=== PATIENT | female | born 1950 ===

== ENCOUNTER 2020-04-03 09:25 | Inpatient (IN) ==
[~2020-04-03 09:25] MED LIST: Buffered Lidocaine 1% SYRIN 1 ml INTRADERM ONE; Ertapenem 1 GM in NS 0.9% 50 ML BAG IVPB SCH; Famotidine IV 10 MG/ML 2 ml VIAL (20 mg) IV ONE; Lactated Ringers 1000 ml BAG 1,000 ML IV SCH
[2020-04-03] MEDS ORDERED: Heparin 5000 UNITS/ML 1 mL VIAL ONE (09:52)
[2020-04-03] MEDS ORDERED: Famotidine IV 10 MG/ML 2 ml VIAL (20 mg) ONE (09:52)
[2020-04-03] MEDS ORDERED: Lidocaine 2% PF 5 ML VIAL ONE (10:41)
[2020-04-03] MEDS ORDERED: fentaNYL 100 mcg/2 ml 50 MCG/ML VIAL ONE ×4 (10:41→16:09)
[2020-04-03] MEDS ORDERED: Dexamethasone IV 4 MG/ML VIAL 1 ml VIAL ONE (10:41)
[2020-04-03] MEDS ORDERED: Ondansetron 4 mg VIAL 2 MG/ML 2 ml VIAL ONE (10:41)
[2020-04-03] MEDS ORDERED: Rocuronium 50 mg VIAL 10 mg/ml 5 ml VIAL (50 mg) ONE ×2 (10:41→15:43)
[2020-04-03] MEDS ORDERED: Midazolam 2 mg/2 ml VIAL 1 mg/ml 2 ml VIAL (2 mg) ONE (10:41)
[2020-04-03] MEDS ORDERED: Propofol 10 MG/ML 20 ML BTL ONE ×2 (10:41→12:21)
[2020-04-03] MEDS ORDERED: Bupivacaine 0.5% SDV PF 30ML VIAL ONE (11:33)
[2020-04-03] MEDS ORDERED: Acetaminophen IV 1 GM/100ML 100 ML ONE (11:36)
[2020-04-03] MEDS ORDERED: Naloxone 0.4 mg VIAL 0.4 mg/ml 1 ml VIAL IV PRN (12:45)
[2020-04-03] MEDS ORDERED: DiMENhydriNATE IV 50 mg/ml 1 ml VIAL IV PUSH PRN (12:45)
[2020-04-03] MEDS ORDERED: Labetalol IV 5 MG/ML 20 ml VIAL ONE (13:15)
[2020-04-03] MEDS ORDERED: Desflurane 240 ML INH ONE (14:17)
[2020-04-03] MEDS ORDERED: hydrALAZINE 20 mg/ml 1 ML Vial IV ONE (14:40)
[2020-04-03] MEDS ORDERED: HYDROmorphone 1 MG/1 ML SYRINGE IV SLOW PU PRN (17:42)
[2020-04-03] MEDS ORDERED: Lactated Ringers 1000 ml BAG 1,000 ML IV SCH (18:00)
[2020-04-03] MEDS ORDERED: Sugammadex 500 MG/5 ML 5 ml VIAL IV PUSH ONE (18:54)
[2020-04-03] MEDS ORDERED: HYDROmorphone 1 MG/1 ML SYRINGE ONE (19:29)
[2020-04-03] MEDS: HYDROmorphone 1 MG/1 ML SYRINGE IV PRN ×4 (19:31→20:12)
[2020-04-03] MEDS ORDERED: DiMENhydriNATE IV 50 mg/ml 1 ml VIAL ONE (19:46)
[2020-04-04] MEDS: Heparin 5000 UNITS/ML 1 mL VIAL SUBCUT SCH ×3 (05:29→21:40)
[2020-04-04 09:54] LABS: ABS Lymphocytes 0.8 10^3/ul (1.0-4.8); ABS Monocytes 0.8 10^3/ul (0-0.8); ABS Neutrophils 7.1 10^3/ul (1.5-7.7); Hematocrit 35 % (35-47); Hemoglobin 11.8 g/dL (12.0-16.0); Lymphocyte % 9.1 %; Mean Corpuscular HGB Conc 34 g/dL (31-36); Mean Corpuscular Hemoglobin 33 pg (27-31); Mean Corpuscular Volume 96 fL (80-97); Mean Platelet Volume 8.6 fL (7.4-10.4); Platelet Count 204 10^3/uL (150-450); Red Blood Count 3.62 10^6 /uL (3.70-4.87); Red Cell Distribution Width 15 % (10-15); White Blood Count 8.7 10^3/uL (3.5-10.8)
[2020-04-04 10:15] LABS: BUN/Creatinine Ratio 21.9 (8-20); Calcium 8.5 mg/dL (8.6-10.3); EGFR African American 95.6 (>60); Potassium 3.5 mmol/L (3.5-5.0)
[2020-04-04] MEDS: Ondansetron 4 mg VIAL 2 MG/ML 2 ml VIAL IV PRN (16:02)
[2020-04-05] MEDS: Ondansetron 4 mg VIAL 2 MG/ML 2 ml VIAL IV PRN (01:31)
[2020-04-05] MEDS: Heparin 5000 UNITS/ML 1 mL VIAL SUBCUT SCH ×3 (05:18→22:42)
[2020-04-05 05:21] LABS: ABS Lymphocytes 0.6 10^3/ul (1.0-4.8); ABS Monocytes 0.6 10^3/ul (0-0.8); Eosinophil % 0.3 %; Hematocrit 34 % (35-47); Hemoglobin 11.7 g/dL (12.0-16.0); Lymphocyte % 8.1 %; Mean Corpuscular HGB Conc 35 g/dL (31-36); Mean Corpuscular Hemoglobin 33 pg (27-31); Mean Corpuscular Volume 96 fL (80-97); Nucleated Red Blood Cells % 0.1; Platelet Count 176 10^3/uL (150-450); Red Blood Count 3.49 10^6 /uL (3.70-4.87); Red Cell Distribution Width 15 % (10-15); White Blood Count 7.2 10^3/uL (3.5-10.8)
[2020-04-05 05:44] LABS: BUN/Creatinine Ratio 23.5 (8-20); Calcium 8.7 mg/dL (8.6-10.3); EGFR African American 84.8 (>60); EGFR Non-African American 70.1 (>60); Potassium 3.4 mmol/L (3.5-5.0)
[2020-04-06] MEDS: Heparin 5000 UNITS/ML 1 mL VIAL SUBCUT SCH ×2 (05:36→14:14)
[2020-04-06 15:49] VITALS: BP 154/63
== END 2020-04-06 17:25 | disposition home health service (06) | DRG 330 ==
LOC: AA 09:25 → SSU 21:23
PROVIDERS: ADMIT Surgery; ATTEND Surgery

== ENCOUNTER 2020-05-22 07:20 | Inpatient (IN) ==
[~2020-05-22 07:20] MED LIST changes: +Acetaminophen IV 1 GM/100ML 100 ML ONE; -Ertapenem 1 GM in NS 0.9% 50 ML BAG IVPB SCH; +fentaNYL 100 mcg/2 ml 50 MCG/ML VIAL ONE
[2020-05-22] MEDS ORDERED: Famotidine IV 10 MG/ML 2 ml VIAL (20 mg) ONE (07:47)
[2020-05-22] MEDS ORDERED: ceFAZolin 2 GM PREMIX 2 GM/50 ML BAG ONE (07:47)
[2020-05-22] MEDS ORDERED: Ondansetron 4 mg VIAL 2 MG/ML 2 ml VIAL ONE (08:23)
[2020-05-22] MEDS ORDERED: Dexamethasone IV 4 MG/ML VIAL 1 ml VIAL ONE (08:23)
[2020-05-22] MEDS ORDERED: Lidocaine 2% PF 5 ML VIAL ONE (08:23)
[2020-05-22] MEDS ORDERED: Propofol 10 MG/ML 20 ML BTL ONE (08:23)
[2020-05-22] MEDS ORDERED: fentaNYL 100 mcg/2 ml 50 MCG/ML VIAL ONE ×2 (08:23→11:34)
[2020-05-22] MEDS ORDERED: Rocuronium 50 mg VIAL 10 mg/ml 5 ml VIAL (50 mg) ONE (08:24)
[2020-05-22] MEDS ORDERED: Midazolam 5 mg/5 ml VIAL 1 mg/ml 5 ml VIAL (5 mg) ONE (08:24)
[2020-05-22] MEDS ORDERED: Ketamine HCL 50 mg/ml 10 ml VIAL (500 MG) ONE (08:24)
[2020-05-22] MEDS ORDERED: Bupivacaine 0.5% 50 ML MDV VIAL ONE (09:13)
[2020-05-22] MEDS ORDERED: HYDROmorphone 1 MG/1 ML SYRINGE ONE (10:29)
[2020-05-22] MEDS ORDERED: Naloxone 0.4 mg VIAL 0.4 mg/ml 1 ml VIAL IV PRN (10:32)
[2020-05-22] MEDS ORDERED: HYDROmorphone 1 MG/1 ML SYRINGE IV PRN (10:32)
[2020-05-22] MEDS ORDERED: Ondansetron 4 mg VIAL 2 MG/ML 2 ml VIAL IV PRN ×2 (10:32→11:43)
[2020-05-22] MEDS ORDERED: Acetaminophen IV 1 GM/100ML 100 ML ONE (10:57)
[2020-05-22] MEDS ORDERED: Sugammadex 500 MG/5 ML 5 ml VIAL IV PUSH ONE (11:00)
[2020-05-22] MEDS ORDERED: Bacitracin OINTMENT TUBE ONE (11:08)
[2020-05-22] MEDS: fentaNYL 100 mcg/2 ml 50 MCG/ML VIAL IV PRN ×2 (11:35→11:52)
[2020-05-22] MEDS ORDERED: HYDROmorphone 0.5 MG/0.5 ML SYRINGE IV SLOW PU PRN (11:43)
[2020-05-22] MEDS: NS 0.9% 1000 ml BAG 1,000 ML IV SCH ×2 (13:58→22:51)
[2020-05-23] MEDS: NS 0.9% 1000 ml BAG 1,000 ML IV SCH (09:08)
[2020-05-23] MEDS ORDERED: ceFAZolin 2 GM PREMIX 2 GM/50 ML BAG IVPB ONE (10:00)
[2020-05-25 11:28] VITALS: BP 145/67
== END 2020-05-25 14:30 | disposition home health service (06) | DRG 330 ==
LOC: OR 07:20 → SSU 11:43
PROVIDERS: ADMIT Surgery; ATTEND Surgery